=== PATIENT | male | born 1945 | race Caucasian/White ===

== ENCOUNTER 2018-09-29 09:11 | Inpatient (IN) | payer OTHER, BC ==
[2018-09-29 09:26] VITALS: BMI 27.1
[2018-09-29 10:15] LABS: BASO % 0.4 % (0-2.0); EOS % 1.1 % (0-4.5); HEMATOCRIT 38.7 % (35.4-49); HEMOGLOBIN 13.4 GM/dL (11.7-16.9); LYMPH % 13.9 % (8-40); MCH 31.2 pg (25.7-33.7); MCHC 34.6 g/dl (32.0-35.9); MEAN CELL VOLUME 90.3 fl (80-96); MEAN PLT VOLUME 9.1 fl (7.5-11.1); MONO % 5.1 % (3.8-10.2); NEUT % 79.5 % (42.8-82.8); PLATELET COUNT 153 K/MM3 (134-434); RBC 4.28 M/mm3 (4.00-5.60); RDW 13.7 % (11.9-15.9); WHITE BLOOD COUNT 8.1 K/mm3 (4.0-10.0)
[2018-09-29 10:45] LABS: ALBUMIN 3.7 g/dl (3.4-5.0); BILIRUBIN,TOTAL 0.4 mg/dL (0.2-1); CALCIUM 8.8 mg/dL (8.5-10.1); CREATININE 0.9 mg/dL (0.55-1.3); POTASSIUM 4.2 mmol/L (3.5-5.1); TOT PROT 6.7 g/dl (6.4-8.2)
--- NOTE | 2018-09-29 11:13 | PDOC ---
History of Present Illness - General Chief Complaint: Lightheaded Stated Complaint: DIZZINESS Time Seen by Provider: 09/29/18 09:54 - History of Present Illness Initial Comments: 09/29/18 11:06 73yo M hx HTN, HL, BPH presents to the ED with unsteadiness and fall yesterday. Pt reports he woke up yesterday, went to put his phone on the dresser when he states "I felt like my right leg wasn't there when I stepped on it." At that point, he fell, striking the L side of his chest and nose into the dresser, landing onto his knees. Denies head strike or LOC. His helped him up and he went back to bed. When he attempted to stand up again, he felt better, was able to walk around but intermittently felt unsteady on his feet because his "head was spinning" and he felt lightheaded. He went to see Dr. Oliver who examined him and pt reports he had a normal exam. His symptoms resolved and he was able to go shopping with his later in the day but this morning, he continued to feel unsteady when trying to get out of bed and required assistance from his to ambulate. These symptoms persisted prompting the ED visit. this morning, he also felt nauseous. Denies focal weakness/numbness at this time, headache, CP, SOB, N/V/D, abd pain, LE edema. No hx similar sxs. No recent travel. No palpitaions. Takes ASA 81mg daily. Past History - Past Medical History Allergies/Adverse Reactions: Allergies Allergy/AdvReac Type Severity Reaction Status Date / Time No Known Drug Allergies Allergy Verified 09/29/18 09:26 Home Medications: Ambulatory Orders Losartan/Hydrochlorothiazide [Hyzaar 50-12.5 Tablet] 1 each PO HS 11/19/14 Rosuvastatin Calcium [Crestor] 5 mg PO HS 11/19/14 Tamsulosin HCl [Flomax] 0.4 mg PO DAILY 09/29/18 Anemia: No Asthma: No Cancer: No Cardiac Disorders: No CVA: No COPD: No CHF: No Dementia: No Diabetes: No GI Disorders: No Disorders: No HTN: Yes Hypercholesterolemia: Yes Liver Disease: No Seizures: No Thyroid Disease: No - Surgical History Abdominal Surgery: No Appendectomy: No Cardiac Surgery: (angiogram - negative) Cholecystectomy: No Lung Surgery: No Neurologic Surgery: No Orthopedic Surgery: No - Suicide/Smoking/Psychosocial Hx Smoking History: Never smoked Have you smoked in the past 12 months: No Information on smoking cessation initiated: No Hx Alcohol Use: No Drug/Substance Use Hx: No Substance Use Type: Alcohol Hx Substance Use Treatment: No Review of Systems - Review of Systems Comments:: 09/29/18 11:11 GENERAL/CONSTITUTIONAL: No fever or chills. +unsteadiness HEAD, EYES, EARS, NOSE AND THROAT: No change in vision. No ear pain or discharge. No sore throat. GASTROINTESTINAL: No nausea, vomiting, diarrhea or constipation. GENITOURINARY: No dysuria, frequency, or change in urination. CARDIOVASCULAR: No chest pain or shortness of breath. RESPIRATORY: No cough, wheezing, or hemoptysis. MUSCULOSKELETAL: No joint or muscle swelling or pain. No neck or back pain. SKIN: No rash NEUROLOGIC: No headache, vertigo, loss of consciousness, +RLE numbness ENDOCRINE: No increased thirst. No abnormal weight change. HEMATOLOGIC/LYMPHATIC: No anemia, easy bleeding, or history of blood clots. ALLERGIC/IMMUNOLOGIC: No hives or skin allergy. *Physical Exam - Vital Signs Last Vital Signs Temp Pulse Resp BP Pulse Ox 97.3 F L 57 L 16 137/83 100 09/29/18 09:11 09/29/18 09:11 09/29/18 09:11 09/29/18 09:11 09/29/18 09:11 - Physical Exam Comments: 09/29/18 11:13 GENERAL: Awake, alert, and fully oriented, in no acute distress HEAD: +2x2mm ecchymmosis to L lateral superior nose, no bony ttp or deformities EYES: PERRLA, EOMI, sclera anicteric, conjunctiva clear ENT: Hearing grossly normal, nares patent, oropharynx clear without exudates. Dry MM NECK: Normal ROM, supple, no lymphadenopathy, JVD, or masses LUNGS: Breath sounds equal, clear to auscultation bilaterally. No wheezes, and no crackles HEART: Bradycardic to 50s but regular, normal S1 and S2, no murmurs, rubs or gallops ABDOMEN: Soft, nontender, normoactive bowel sounds. No guarding, no rebound. No masses EXTREMITIES: Normal range of motion, no edema. No cords, erythema, or tenderness NEUROLOGICAL: Normal speech, cranial nerves intact, negative pronator drift, 4+ /5 strength to RLE, 5/5 strength in remaining extremities, normal sensation to light touch in all 4 extremities, normal cerebellar exam, normal gait SKIN: Warm, Dry, normal turgor, no rashes or lesions noted. Heart Score/ECG Review #1 09/29/18 11:16 Twelve-lead EKG was performed and reviewed by me. Sinus bradycardia, rate 54. Normal axis and intervals. No ST elevations ED Treatment Course - LABORATORY CBC & Chemistry Diagram: 09/29/18 09:38 09/29/18 09:58 - ADDITIONAL ORDERS Additional order review: Laboratory Results 09/29/18 09/29/18 09:58 09:38 Sodium 141 Potassium 4.2 Chloride 108 H Carbon Dioxide 27 Anion Gap 6 L BUN 15 Creatinine 0.9 Est GFR (CKD-EPI)AfAm 98.55 Est GFR (CKD-EPI)NonAf 85.03 Random Glucose 114 H Calcium 8.8 Total Bilirubin 0.4 AST 26 ALT 43 Alkaline Phosphatase 61 Creatine Kinase 297 Creatine Kinase Index 1.0 CK-MB (CK-2) 3.1 Troponin I < 0.02 Total Protein 6.7 Albumin 3.7 09/29/18 09:38 RBC 4.28 MCV 90.3 MCHC 34.6 RDW 13.7 MPV 9.1 Neutrophils % 79.5 Lymphocytes % 13.9 Monocytes % 5.1 Eosinophils % 1.1 Basophils % 0.4 - RADIOLOGY Radiology Studies Ordered: Category Date Time Status HEAD CT WITHOUT CONTRAST [CT] Stat CT Scan 09/29/18 11:03 Ordered CHEST X-RAY PORTABLE* [RAD] Stat Radiology 09/29/18 11:05 Ordered Medical Decision Making - Medical Decision Making 09/29/18 11:17 73yo M hx HTN, HL, BPH presents to the ED with unsteadiness, resolved sensation the RLE "was not there" Vitals wnl Exam with subtle weakness to RLE Concern for TIA vs CVA vs metabolic disarray vs vertigo Plan for labs, CTH, anticipate admission 09/29/18 13:10 CTH wth no acute changes MRI/MRA ordered Dr. Lin consulted Case discussed with Dr. Lentz, pt accepted for admission to stroke bed Case discussed in detail with admitting physician including history, physical exam and ancillary studies. Admitting physician has assumed care for the patient, will follow all pending diagnostics and will complete the evaluation and treatment. *DC/Admit/Observation/Transfer Diagnosis at time of Disposition: Right leg weakness, Unsteady gait, Fall - Discharge Dispostion Condition at time of disposition: Stable Decision to Admit order: Yes - Referrals Referrals: Bob Oliver MD [Primary Care Provider] - - Patient Instructions - Post Discharge Activity - Attestations Physician Attestion: 09/29/18 13:39 I, Dr. Petrona Sanders MD, attest that this document has been prepared under my direction and personally reviewed by me in its entirety. I further attest, that it accurately reflects all work, treatment, procedures and medical decision -making performed by me.
[2018-09-29 12:34] LABS: PH,URINE 6.5 (5.0-8.0); URINE APPEARANCE CLEAR; URINE BILIRUBIN NEGATIVE (NEGATIVE); URINE COLOR YELLOW; URINE GLUCOSE (UA) NEGATIVE (NEGATIVE); URINE KETONE NEGATIVE (NEGATIVE); URINE LEUK ESTERASE NEGATIVE (NEGATIVE); URINE NITRITE NEGATIVE (NEGATIVE); URINE PROTEIN NEGATIVE (NEGATIVE); URINE UROBILINOGEN 0.2 mg/dL (0.2-1.0)
--- NOTE | 2018-09-29 12:51 | EKG ---
Test Reason : Blood Pressure : / mmHG Vent. Rate : 054 BPM Atrial Rate : 054 BPM P-R Int : 178 ms QRS Dur : 094 ms QT Int : 440 ms P-R-T Axes : 024 027 072 degrees QTc Int : 417 ms SINUS BRADYCARDIA OTHERWISE NORMAL ECG NO PREVIOUS ECGS AVAILABLE Confirmed by CELIA YBARRA MD ([id number]) on 09/29/2018 12:51:26 PM Referred By: Confirmed By:CELIA YBARRA MD
--- NOTE | 2018-09-29 14:03 | HP ---
CHIEF COMPLAINT: dizziness PCP: Dr. Oliver HISTORY OF PRESENT ILLNESS: Patient is a 73 yo M with a PMHx of HTN, HLD, BPH, presented to the ED because of dizziness and unsteadiness that started yesterday. Patient said he woke up from bed yesterday and fell after his R leg "gave out on me", which caused him to fall and hit his nose and L chest. Patient said his Leg function came back to normal after a few seconds. He went to his PCP who did a full neurological examination with no abnormal findings. Later that day he went to the mall with his and felt good the rest of the day. Patient then woke up this morning with unsteady gait, dizziness, and felt as if he was spinning in the room. He then developed nausea and a few episodes of NBNB vomiting. He also says he developed blurry vision. Patient said this never happened to him before but does admit to chronic hearing loss (requiring hearing Aides), and dizziness when bending or getting up too quickly. Patient was also started on Flomax 2 months ago after being diagnosed with BPH. Patient denies numbness, tingling, LOC, head trauma, chest pain, sob, fevers, chills, headaches, weakness. ER course was notable for: (1) Head CT: no acute infarcts. moderate volume loss and dilatation of the ventricles. (2) Bradycardic in the 50's. Recent Travel: denies PAST MEDICAL HISTORY: per HPI PAST SURGICAL HISTORY: meniscus sx in the past Social History: Smoking: denies Alcohol: denies Drugs: denies Family History: mother and father with chf Allergies No Known Drug Allergies Allergy (Verified 09/29/18 09:26) HOME MEDICATIONS: Home Medications Medication Instructions Recorded Losartan/Hydrochlorothiazide 1 each PO HS 11/19/14 [Hyzaar 50-12.5 Tablet] Rosuvastatin Calcium [Crestor] 5 mg PO HS 11/19/14 Tamsulosin HCl [Flomax] 0.4 mg PO DAILY 09/29/18 REVIEW OF SYSTEMS CONSTITUTIONAL: Absent: fever, chills, diaphoresis, generalized weakness, malaise, loss of appetite, weight change HEENT: Absent: rhinorrhea, nasal congestion, throat pain, throat swelling, difficulty swallowing, mouth swelling, ear pain, eye pain, visual changes CARDIOVASCULAR: lightheadedness Absent: chest pain, syncope, palpitations, irregular heart rate, peripheral edema RESPIRATORY: Absent: cough, shortness of breath, dyspnea with exertion, orthopnea, wheezing, stridor, hemoptysis GASTROINTESTINAL: Absent: abdominal pain, abdominal distension, nausea, vomiting, diarrhea, constipation, melena, hematochezia GENITOURINARY: Absent: dysuria, frequency, urgency, hesitancy, hematuria, flank pain, genital pain MUSCULOSKELETAL: Absent: myalgia, arthralgia, joint swelling, back pain, neck pain SKIN: Absent: rash, itching, pallor HEMATOLOGIC/IMMUNOLOGIC: Absent: easy bleeding, easy bruising, lymphadenopathy, frequent infections ENDOCRINE: Absent: unexplained weight gain, unexplained weight loss, heat intolerance, cold intolerance NEUROLOGIC: Absent: headache, focal weakness or paresthesias, dizziness, unsteady gait, seizure, mental status changes, bladder or bowel incontinence PSYCHIATRIC: Absent: anxiety, depression, suicidal or homicidal ideation, hallucinations. PHYSICAL EXAMINATION Vital Signs - 24 hr 09/29/18 09/29/18 09/29/18 09:11 13:00 13:22 Temperature 97.3 F L Pulse Rate 57 L Pulse Rate [ 69 Apical] Respiratory 16 20 Rate Blood Pressure 137/83 Blood Pressure 125/86 [Right Arm] O2 Sat by Pulse 100 96 96 Oximetry (%) GENERAL: Awake, alert, and fully oriented, in no acute distress. HEAD: Normal with no signs of trauma. EYES: Pupils equal, round and reactive to light, extraocular movements intact, sclera anicteric, conjunctiva clear. no nystagmus EARS, NOSE, THROAT: B/L Ears normal, mild cerumen. no ear abnormalities. oropharynx clear without exudates. dry mucous membranes. NECK: Normal range of motion, supple LUNGS: Breath sounds equal, clear to auscultation bilaterally. No wheezes, and no crackles. HEART: Regular rate and rhythm, normal S1 and S2 without murmur, rub or gallop. ABDOMEN: Soft, nontender, not distended, normoactive bowel sounds, no guarding, no rebound, no masses. No hepatomegaly or splenomegaly. MUSCULOSKELETAL: Normal range of motion at all joints. No bony deformities or tenderness. No CVA tenderness. UPPER EXTREMITIES: 2+ pulses, warm, well-perfused. No cyanosis. No clubbing. No peripheral edema. LOWER EXTREMITIES: 2+ pulses, warm, well-perfused. No calf tenderness. No peripheral edema. NEUROLOGICAL: No facial droop. symmetric face, strength 5/5 throughout. reflexes intact thoughout. Cranial nerves II-XII intact. Normal speech. UNSTEADY GAIT. abnormal L hand finger to nose. sensations intact throughout. Laboratory Results - last 24 hr 09/29/18 09/29/18 09/29/18 09:38 09:38 09:58 WBC 8.1 RBC 4.28 Hgb 13.4 Hct 38.7 MCV 90.3 MCH 31.2 MCHC 34.6 RDW 13.7 Plt Count 153 MPV 9.1 Absolute Neuts (auto) 6.4 Neutrophils % 79.5 Lymphocytes % 13.9 Monocytes % 5.1 Eosinophils % 1.1 Basophils % 0.4 Nucleated RBC % 0 Sodium 141 Potassium 4.2 Chloride 108 H Carbon Dioxide 27 Anion Gap 6 L BUN 15 Creatinine 0.9 Est GFR (CKD-EPI)AfAm 98.55 Est GFR (CKD-EPI)NonAf 85.03 Random Glucose 114 H Calcium 8.8 Total Bilirubin 0.4 AST 26 ALT 43 Alkaline Phosphatase 61 Creatine Kinase 297 Creatine Kinase Index 1.0 CK-MB (CK-2) 3.1 Troponin I < 0.02 Total Protein 6.7 Albumin 3.7 Urine Color Urine Appearance Urine pH Ur Specific [place] Urine Protein Urine Glucose (UA) Urine Ketones Urine Blood Urine Nitrite Urine Bilirubin Urine Urobilinogen Ur Leukocyte Esterase 09/29/18 12:21 WBC RBC Hgb Hct MCV MCH MCHC RDW Plt Count MPV Absolute Neuts (auto) Neutrophils % Lymphocytes % Monocytes % Eosinophils % Basophils % Nucleated RBC % Sodium Potassium Chloride Carbon Dioxide Anion Gap BUN Creatinine Est GFR (CKD-EPI)AfAm Est GFR (CKD-EPI)NonAf Random Glucose Calcium Total Bilirubin AST ALT Alkaline Phosphatase Creatine Kinase Creatine Kinase Index CK-MB (CK-2) Troponin I Total Protein Albumin Urine Color Yellow Urine Appearance Clear Urine pH 6.5 Ur Specific [place] 1.027 Urine Protein Negative Urine Glucose (UA) Negative Urine Ketones Negative Urine Blood Negative Urine Nitrite Negative Urine Bilirubin Negative Urine Urobilinogen 0.2 Ur Leukocyte Esterase Negative ASSESSMENT/PLAN: 73 yo M with a PMHx of HTN, HLD, BPH, presented to the ED because of dizziness and unsteadiness. #Gait instability/Dizziness/Nausea/Vomiting -r/o TIA/CVA vs BPPV or inner ears dz vs Orthostatic (recent flomax use) -EKG with Sinus bryan 54 -tele monitoring -echo -carotids -Neuro consult -Head CT: no acute infarcts. moderate volume loss and dilatation of the ventricles. -FU BRAIN MRI -consider ENT consult or outpatient follow up for vertigo -orthostatic VS -IV fluids. 1 L Bolus then 75ml/hour -consider starting meclizine -hold Flomax -ASA 81mg daily -Start Atorvastatin 40mg daily. D/C home med Crestor 5mg #HTN/HLD -hold HCTZ/Darrion combo #FEN -IV fluids NS@ 75 -monitor -sodium diet #Dvt -eab Visit type - Emergency Visit Emergency Visit: Yes ED Registration Date: 09/29/18 Care time: The patient presented to the Emergency Department on the above date and was hospitalized for further evaluation of their emergent condition. - New Patient This patient is new to me today: Yes Date on this admission: 09/30/18 - Critical Care Critical Care patient: No
[2018-09-29] MEDS ORDERED: ATORVASTATIN CA 40 MG TABLET (FP) PO ONE (14:23)
[2018-09-29] MEDS ORDERED: SODIUM CHLORIDE 1,000 ML IV STA (14:24)
[2018-09-29] MEDS ORDERED: ASPIRIN 81 MG CHEWABLE TABLETS ONE (15:26)
--- NOTE | 2018-09-29 15:26 | PN ---
Teaching Attending Note Name of Resident: Benja Topete ATTENDING PHYSICIAN STATEMENT I saw and evaluated the patient. I reviewed the resident's note and discussed the case with the resident. I agree with the resident's findings and plan as documented with exceptions below. SUBJECTIVE: 73 yom with PMHx of HTN, HLD, BPH, started on flomax 2 months ago, was in his [place] yesterday, when noted his right leg giving out, and his left side of his nose and chest to the dresser. Was feeling fine then, was seen by PCP with reported normal exam and sent home. This AM, patient woke up with dizziness intially reported spinning sensation, now light headedness, more with positional changes, associated with nausea, retching, minimal to none oral intake and gait instability. Also reports blurry vision which is improved now. Given ongoing symptoms came to the ED. Currently no dizziness rest but present with positional changes and when tries to sit or stand up. Blurry vision improved. ongoing nausea and gait instability , 12 point ROS done, neg for chest pain, palpitations, dyspnea, ear pain, recent URI like illness, speech disturbances, or any new concerns. left chest wall soreness, improved today. No pain over nose. OBJECTIVE: Vital Signs Period Temp Pulse Resp BP Sys/Wilson Pulse Ox Last 24 Hr 97.3 F 57-69 16-20 125-137/83-86 96-100 Intake & Output 09/26/18 09/27/18 09/28/18 09/29/18 23:59 23:59 23:59 23:59 Weight 200 lb GENERAL: Awake, alert, and fully oriented, in no acute distress. HEAD: Normal with no signs of trauma. EYES: Pupils equal, round and reactive to light, extraocular movements intact, sclera anicteric, conjunctiva clear. No lid lag. EARS, NOSE, THROAT: erythema over nose (Chronic per patient and family), no tenderness over sinus/nasal region Otoscopic exam: minimal cerumen, visualized tympanic membranes with no perforation/erythema or discharge NECK: Normal range of motion, supple without lymphadenopathy, JVD, or masses. LUNGS: Breath sounds equal, clear to auscultation bilaterally. No wheezes, and no crackles. No accessory muscle use. HEART: Regular rate and rhythm, normal S1 and S2 ABDOMEN: Soft, nontender, not distended, normoactive bowel sounds, no guarding, no rebound, no masses. MUSCULOSKELETAL: Normal range of motion at all joints. No bony deformities or tenderness. No CVA tenderness. small ecchymotic area of left upper chest wall, no point tenderness or crepitus noted UPPER EXTREMITIES: 2+ pulses, warm, well-perfused. No cyanosis. No clubbing. No peripheral edema. LOWER EXTREMITIES: 2+ pulses, warm, well-perfused. No calf tenderness. No peripheral edema. NEUROLOGICAL: AAOx3, power 5/5, DTR bilaterally symmetric, EOMI, PERRL, no nystagmus, facial symmetry, speech normal, gait, broad based when upright, unsteady, further exam deferred, blurriness improved, no gross deficit or diplopia noted, cranial nerves II-XII intact, toes downgoing, finger nose test with intermittent past pointing, no dysdiadokinesia PSYCHIATRIC: Cooperative. Good eye contact. Appropriate mood and affect. SKIN: Warm, dry, normal turgor, no rashes or lesions noted, normal capillary refill. Home Medications Medication Instructions Recorded Losartan/Hydrochlorothiazide 1 each PO HS 11/19/14 [Hyzaar 50-12.5 Tablet] Rosuvastatin Calcium [Crestor] 5 mg PO HS 11/19/14 Tamsulosin HCl [Flomax] 0.4 mg PO DAILY 09/29/18 Active Medications Aspirin (Asa -) 81 mg PO DAILY [facility] Last Admin: 09/29/18 15:30 Dose: 81 mg Atorvastatin Calcium (Lipitor -) 40 mg PO [facility] Last Admin: 09/29/18 15:51 Dose: 40 mg Sodium Chloride (Normal Saline -) 1,000 mls @ 75 mls/hr IV ASDIR [facility] Laboratory Results - last 24 hr 09/29/18 09/29/18 09/29/18 09:38 09:38 09:58 WBC 8.1 RBC 4.28 Hgb 13.4 Hct 38.7 MCV 90.3 MCH 31.2 MCHC 34.6 RDW 13.7 Plt Count 153 MPV 9.1 Absolute Neuts (auto) 6.4 Neutrophils % 79.5 Lymphocytes % 13.9 Monocytes % 5.1 Eosinophils % 1.1 Basophils % 0.4 Nucleated RBC % 0 Sodium 141 Potassium 4.2 Chloride 108 H Carbon Dioxide 27 Anion Gap 6 L BUN 15 Creatinine 0.9 Est GFR (CKD-EPI)AfAm 98.55 Est GFR (CKD-EPI)NonAf 85.03 Random Glucose 114 H Calcium 8.8 Total Bilirubin 0.4 AST 26 ALT 43 Alkaline Phosphatase 61 Creatine Kinase 297 Creatine Kinase Index 1.0 CK-MB (CK-2) 3.1 Troponin I < 0.02 Total Protein 6.7 Albumin 3.7 Urine Color Urine Appearance Urine pH Ur Specific [place] Urine Protein Urine Glucose (UA) Urine Ketones Urine Blood Urine Nitrite Urine Bilirubin Urine Urobilinogen Ur Leukocyte Esterase 09/29/18 12:21 WBC RBC Hgb Hct MCV MCH MCHC RDW Plt Count MPV Absolute Neuts (auto) Neutrophils % Lymphocytes % Monocytes % Eosinophils % Basophils % Nucleated RBC % Sodium Potassium Chloride Carbon Dioxide Anion Gap BUN Creatinine Est GFR (CKD-EPI)AfAm Est GFR (CKD-EPI)NonAf Random Glucose Calcium Total Bilirubin AST ALT Alkaline Phosphatase Creatine Kinase Creatine Kinase Index CK-MB (CK-2) Troponin I Total Protein Albumin Urine Color Yellow Urine Appearance Clear Urine pH 6.5 Ur Specific [place] 1.027 Urine Protein Negative Urine Glucose (UA) Negative Urine Ketones Negative Urine Blood Negative Urine Nitrite Negative Urine Bilirubin Negative Urine Urobilinogen 0.[address] brain results reviewed EKG sinus bradycardia 50s, no acute ST-T changes ASSESSMENT AND PLAN: 73 yom with PMHx of HTN, HLD, BPH admitted with Gait instability/dizziness/ nausea/vomiting -Dizziness/gait instability/nausea/vomiting, r/o cerebella CVA vs TIA -Acute on chronic positional dizziness, ?from above vs recent flomax -HTN -HLD -BPH Plan: MRI/MRA brain/neck. Neuro checks. Stroke telemetry. Neurology consult Dr. Lin ASA/statin. Check lipid panel 2D echo, carotid duplex. Hold ARB/HCTZ and flomax for now. Supportive treatment with zofran, gentle hydration. PT eval [id number] SCDs Dispo admit to stroke telemetry. Plan discussed with patient and family at bedside in detail, all questions answered. Total admit time 65 min.
[2018-09-29] MEDS: ASPIRIN 81 MG CHEWABLE TABLETS PO SCH (15:30)
[2018-09-29] MEDS ORDERED: SODIUM CHLORIDE 1,000 ML IV SCH (15:45)
[2018-09-29] MEDS ORDERED: HEPARIN NA (PORCINE) 5,000 UNITS/ML 1ML VIAL SQ SCH (18:00)
[2018-09-29] MEDS ORDERED: ROSUVASTATIN CA 10 MG TABLET (FP) PO SCH (22:00)
[2018-09-30 06:09] LABS: BASO % 0.5 % (0-2.0); EOS % 2.5 % (0-4.5); HEMATOCRIT 36.5 % (35.4-49); HEMOGLOBIN 12.8 GM/dL (11.7-16.9); LYMPH % 26.8 % (8-40); MCH 31.3 pg (25.7-33.7); MCHC 35.1 g/dl (32.0-35.9); MEAN CELL VOLUME 89.2 fl (80-96); MEAN PLT VOLUME 8.7 fl (7.5-11.1); MONO % 7.5 % (3.8-10.2); NEUT % 62.7 % (42.8-82.8); PLATELET COUNT 161 K/MM3 (134-434); RBC 4.09 M/mm3 (4.00-5.60); RDW 13.7 % (11.9-15.9); WHITE BLOOD COUNT 6.8 K/mm3 (4.0-10.0)
[2018-09-30 06:45] LABS: ALBUMIN 3.4 g/dl (3.4-5.0); BILIRUBIN,TOTAL 0.4 mg/dL (0.2-1); CALCIUM 8.1 mg/dL (8.5-10.1); CREATININE 0.9 mg/dL (0.55-1.3); MAGNESIUM 2.3 mg/dL (1.8-2.4); PHOSPHOROUS 3.4 mg/dL (2.5-4.9); POTASSIUM 3.9 mmol/L (3.5-5.1); TOT PROT 6.1 g/dl (6.4-8.2)
[2018-09-30] MEDS ORDERED: ASPIRIN 81 MG CHEWABLE TABLETS ONE (09:28)
[2018-09-30] MEDS: ASPIRIN 81 MG CHEWABLE TABLETS PO SCH (09:40)
--- NOTE | 2018-09-30 09:51 | CONSULT ---
Consult - text type - Consultation Consultation Note: Neurology CHIEF COMPLAINT: Dizziness PCP: Dr. Oliver HISTORY OF PRESENT ILLNESS: 73 yo M with a PMHx of HTN, HLD, BPH, presented to the ED because of dizziness and unsteadiness that started the day prior to admission. Patient said he woke up from bed and fell after his R leg "gave out on me", which caused him to fall and hit his nose and L chest. Patient said his Leg function came back to normal after a few seconds. He went to his PCP who did a full neurological examination with no abnormal findings. Later that day he went to the mall with his and felt good the rest of the day. Patient then woke up this morning with unsteady gait, dizziness, and felt as if he was spinning in the room. He then developed nausea and a few episodes of NBNB vomiting. He also says he developed blurry vision. Patient said this never happened to him before but does admit to chronic hearing loss (requiring hearing Aides), and dizziness when bending or getting up too quickly. Patient was also started on Flomax 2 months ago after being diagnosed with BPH. Patient denies numbness, tingling, LOC, head trauma, chest pain, sob, fevers, chills, headaches, weakness. in the ER, he was evaluated and found to be bradycardic to the 50s. He also completed noncontrast head CT which I reviewed and did not demonstrate any significant structural abnormalities. He was admitted for further evaluation and management overnight. MRI brain was completed and did not show evidence of acute or subacute infarct. MRA of the head and neck was also completed and did not show evidence of malformations or aneurysms. He also completed carotid Dopplers which I reviewed and discussed in detail and did not demonstrate hemodynamically significant stenosis. He reports being at baseline without any neurologic complaints. He was in the process of having an echo completed at bedside during my evaluation and seems to be at baseline. Recent Travel: denies PAST MEDICAL HISTORY: per HPI PAST SURGICAL HISTORY: meniscus sx in the past Social History: Smoking: denies Alcohol: denies Drugs: denies Family History: mother and father with chf Allergies No Known Drug Allergies Allergy (Verified 09/29/18 09:26) HOME MEDICATIONS: Home Medications Medication Instructions Recorded Losartan/Hydrochlorothiazide 1 each PO HS 11/19/14 [Hyzaar 50-12.5 Tablet] Rosuvastatin Calcium [Crestor] 5 mg PO HS 11/19/14 Tamsulosin HCl [Flomax] 0.4 mg PO DAILY 09/29/18 REVIEW OF SYSTEMS CONSTITUTIONAL: Absent: fever, chills, diaphoresis, generalized weakness, malaise, loss of appetite, weight change HEENT: Absent: rhinorrhea, nasal congestion, throat pain, throat swelling, difficulty swallowing, mouth swelling, ear pain, eye pain, visual changes CARDIOVASCULAR: lightheadedness Absent: chest pain, syncope, palpitations, irregular heart rate, peripheral edema RESPIRATORY: Absent: cough, shortness of breath, dyspnea with exertion, orthopnea, wheezing, stridor, hemoptysis GASTROINTESTINAL: Absent: abdominal pain, abdominal distension, nausea, vomiting, diarrhea, constipation, melena, hematochezia GENITOURINARY: Absent: dysuria, frequency, urgency, hesitancy, hematuria, flank pain, genital pain MUSCULOSKELETAL: Absent: myalgia, arthralgia, joint swelling, back pain, neck pain SKIN: Absent: rash, itching, pallor HEMATOLOGIC/IMMUNOLOGIC: Absent: easy bleeding, easy bruising, lymphadenopathy, frequent infections ENDOCRINE: Absent: unexplained weight gain, unexplained weight loss, heat intolerance, cold intolerance NEUROLOGIC: Absent: headache, focal weakness or paresthesias, dizziness, unsteady gait, seizure, mental status changes, bladder or bowel incontinence PSYCHIATRIC: Absent: anxiety, depression, suicidal or homicidal ideation, hallucinations. PHYSICAL EXAMINATION Vital Signs - 24 hr 09/29/18 09/29/18 09/29/18 09:11 13:00 13:22 Temperature 97.3 F L Pulse Rate 57 L Pulse Rate [ 69 Apical] Respiratory 16 20 Rate Blood Pressure 137/83 Blood Pressure 125/86 [Right Arm] O2 Sat by Pulse 100 96 96 Oximetry (%) GENERAL: Awake, alert, and fully oriented, in no acute distress. HEAD: Normal with no signs of trauma. EYES: Pupils equal, round and reactive to light, extraocular movements intact, sclera anicteric, conjunctiva clear. no nystagmus EARS, NOSE, THROAT: B/L Ears normal, mild cerumen. no ear abnormalities. oropharynx clear without exudates. dry mucous membranes. NECK: Normal range of motion, supple LUNGS: Breath sounds equal, clear to auscultation bilaterally. No wheezes, and no crackles. HEART: Regular rate and rhythm, normal S1 and S2 without murmur, rub or gallop. ABDOMEN: Soft, nontender, not distended, normoactive bowel sounds, no guarding, no rebound, no masses. No hepatomegaly or splenomegaly. MUSCULOSKELETAL: Normal range of motion at all joints. No bony deformities or tenderness. No CVA tenderness. UPPER EXTREMITIES: 2+ pulses, warm, well-perfused. No cyanosis. No clubbing. No peripheral edema. LOWER EXTREMITIES: 2+ pulses, warm, well-perfused. No calf tenderness. No peripheral edema. NEUROLOGICAL: No facial droop. symmetric face, strength 5/5 throughout. reflexes intact thoughout. Cranial nerves II-XII intact. Normal speech. slight hesitation in gait. sensory intact Laboratory Results - last 24 hr 09/29/18 09/29/18 09/29/18 09:38 09:38 09:58 WBC 8.1 RBC 4.28 Hgb 13.4 Hct 38.7 MCV 90.3 MCH 31.2 MCHC 34.6 RDW 13.7 Plt Count 153 MPV 9.1 Absolute Neuts (auto) 6.4 Neutrophils % 79.5 Lymphocytes % 13.9 Monocytes % 5.1 Eosinophils % 1.1 Basophils % 0.4 Nucleated RBC % 0 Sodium 141 Potassium 4.2 Chloride 108 H Carbon Dioxide 27 Anion Gap 6 L BUN 15 Creatinine 0.9 Est GFR (CKD-EPI)AfAm 98.55 Est GFR (CKD-EPI)NonAf 85.03 Random Glucose 114 H Calcium 8.8 Total Bilirubin 0.4 AST 26 ALT 43 Alkaline Phosphatase 61 Creatine Kinase 297 Creatine Kinase Index 1.0 CK-MB (CK-2) 3.1 Troponin I < 0.02 Total Protein 6.7 Albumin 3.7 Urine Color Urine Appearance Urine pH Ur Specific [place] Urine Protein Urine Glucose (UA) Urine Ketones Urine Blood Urine Nitrite Urine Bilirubin Urine Urobilinogen Ur Leukocyte Esterase 09/29/18 12:21 WBC RBC Hgb Hct MCV MCH MCHC RDW Plt Count MPV Absolute Neuts (auto) Neutrophils % Lymphocytes % Monocytes % Eosinophils % Basophils % Nucleated RBC % Sodium Potassium Chloride Carbon Dioxide Anion Gap BUN Creatinine Est GFR (CKD-EPI)AfAm Est GFR (CKD-EPI)NonAf Random Glucose Calcium Total Bilirubin AST ALT Alkaline Phosphatase Creatine Kinase Creatine Kinase Index CK-MB (CK-2) Troponin I Total Protein Albumin Urine Color Yellow Urine Appearance Clear Urine pH 6.5 Ur Specific [place] 1.027 Urine Protein Negative Urine Glucose (UA) Negative Urine Ketones Negative Urine Blood Negative Urine Nitrite Negative Urine Bilirubin Negative Urine Urobilinogen 0.2 Ur Leukocyte Esterase Negative ASSESSMENT/PLAN: 73 yo M with a PMHx of HTN, HLD, BPH, presented to the ED because of dizziness and unsteadiness that started the day prior to admission. Patient said he woke up from bed and fell after his R leg "gave out on me", which caused him to fall and hit his nose and L chest. Patient said his Leg function came back to normal after a few seconds. He went to his PCP who did a full neurological examination with no abnormal findings. Later that day he went to the mall with his and felt good the rest of the day. Patient then woke up this morning with unsteady gait, dizziness, and felt as if he was spinning in the room. He then developed nausea and a few episodes of NBNB vomiting. He also says he developed blurry vision. Patient said this never happened to him before but does admit to chronic hearing loss (requiring hearing Aides), and dizziness when bending or getting up too quickly. Patient was also started on Flomax 2 months ago after being diagnosed with BPH. Patient denies numbness, tingling, LOC, head trauma, chest pain, sob, fevers, chills, headaches, weakness. in the ER, he was evaluated and found to be bradycardic to the 50s. He also completed noncontrast head CT which I reviewed and did not demonstrate any significant structural abnormalities. He was admitted for further evaluation and management overnight. MRI brain was completed and did not show evidence of acute or subacute infarct. MRA of the head and neck was also completed and did not show evidence of malformations or aneurysms. He also completed carotid Dopplers which I reviewed and discussed in detail and did not demonstrate hemodynamically significant stenosis. He reports being at baseline without any neurologic complaints. He was in the process of having an echo completed at bedside during my evaluation and seems to be at baseline. Would recommend being on antiplatelet such as daily baby aspirin. Follow-up echo results, continue adequate hydration. Continue statin. monitor blood pressure, maintain normotensive range, continue continue HCTZ/Beny regiment. If medically stable, neurologically cleared for discharge.
[2018-09-30 10:21] VITALS: BP 142/86; PULSE 60; TEMP 98.5
--- NOTE | 2018-09-30 11:20 | ECHO ---
Name: RINA HOLLANDJR Exam:Adult Echocardiogram Study Date: 09/30/2018 09:28 AM Age: 73 yrs Reason For Study: TIA Height: 72 in Weight: 250 lb BSA: 2.3 m2 MMode/2D Measurements & Calculations IVSd: 0.81 cm Ao root diam: 3.7 cm LVIDd: 5.4 cm LA dimension: 3.2 cm LVIDs: 3.5 cm LVPWd: 0.79 cm EDV(Teich): 143.4 ml LVOT diam: 2.2 cm ESV(Teich): 50.3 ml Doppler Measurements & Calculations MV E max amando: 77.0 cm/sec Ao V2 max: 162.9 cm/sec MV A max amando: 98.2 cm/sec Ao max P.6 mmHg MV E/A: 0.78 Ao V2 mean: 112.6 cm/sec MV dec time: 0.28 sec Ao mean P.7 mmHg Ao V2 VTI: 33.3 cm LIA(I,D): 2.8 cm2 AI P1/2t: 756.9 msec LIA(V,D): 2.5 cm2 AI max amadno: 384.9 cm/sec LV V1 max P.4 mmHg AI max P.4 mmHg LV V1 mean P.7 mmHg AI dec slope: 148.9 cm/sec2 LV V1 max: 104.9 cm/sec LV V1 mean: 78.8 cm/sec LV V1 VTI: 23.6 cm MR max amando: 491.1 cm/sec SV(LVOT): 93.2 ml MR max P.6 mmHg TV V2 max: 208.2 cm/sec Med Peak E' Amando: 6.5 cm/sec TV max P.4 mmHg Med E/e': 11.9 Lat Peak E' Amando: 7.8 cm/sec Lat E/e': 9.9 Left Ventricle Left ventricular systolic function is normal. Ejection Fraction = 55-60%. Right Ventricle The right ventricle is normal in size and function. Atria Normal left and right atrial size and function. Mitral Valve The mitral valve is normal in structure and function. There is mild mitral annular calcification. The re is no mitral valve stenosis. There is mild mitral regurgitation. Tricuspid Valve The tricuspid valve is normal in structure and function. There is mild tricuspid regurgitation. Aortic Valve The aortic valve is trileaflet. No hemodynamically significant valvular aortic stenosis. Mild aortic regurgitation. Pulmonic Valve The pulmonic valve is not well seen, but is grossly normal. There is no pulmonic valvular stenosis. Great Vessels Borderline aortic root dilatation. Pericardium/Pleura There is no pericardial effusion. Interpretation Summary Left ventricular systolic function is normal. Ejection Fraction = 55-60%. The right ventricle is normal in size and function. There is mild mitral annular calcification. There is mild mitral regurgitation. There is mild tricuspid regurgitation. Mild aortic regurgitation. Borderline aortic root dilatation. There is no pericardial effusion. MD Martin *Jonathan 09/30/2018 11:20 AM
--- NOTE | 2018-09-30 11:57 | DS ---
Physical Exam: SUBJECTIVE: Patient seen and examined, symptoms resolved, ambulating well, no concerns. OBJECTIVE: Vital Signs Period Temp Pulse Resp BP Sys/Wilson Pulse Ox Last 24 Hr 98.0 F-98.5 F 56-74 18-22 125-146/71-96 95-99 Intake & Output 09/27/18 09/28/18 09/29/18 09/30/18 23:59 23:59 23:59 23:59 Weight 200 lb PHYSICAL EXAM GENERAL: The patient is awake, alert, and fully oriented, in no acute distress. HEAD: Normal with no signs of trauma. EYES: PERRL, extraocular movements intact, sclera anicteric, conjunctiva clear. ENT: Ears normal, nares patent, oropharynx clear without exudates, moist mucous membranes, nasal skin discoloration unchanged. NECK: Trachea midline, full range of motion, supple. LUNGS: Breath sounds equal, clear to auscultation bilaterally, no wheezes, no crackles, no accessory muscle use. HEART: Regular rate and rhythm, S1, S2 ABDOMEN: Soft, nontender, nondistended, normoactive bowel sounds, no guarding, no rebound EXTREMITIES: 2+ pulses, warm, well-perfused, no edema. NEUROLOGICAL: AAOx3, facial symmetry, tongue midline, power 5/5, sensation intact and symmetric to light touch, no pronator drift, gait normal today, toes downgoing, DTR bilaterally symmetric, Cranial nerves II through XII grossly intact. Normal speech PSYCH: Normal mood, normal affect. SKIN: Warm, dry, normal turgor, no rashes or lesions noted. LABS Laboratory Results - last 24 hr 09/29/18 09/29/18 09/30/18 12:21 15:33 05:55 WBC 6.8 RBC 4.09 Hgb 12.8 Hct 36.5 MCV 89.2 MCH 31.3 MCHC 35.1 RDW 13.7 Plt Count 161 MPV 8.7 Absolute Neuts (auto) 4.3 Neutrophils % 62.7 D Lymphocytes % 26.8 D Monocytes % 7.5 Eosinophils % 2.5 D Basophils % 0.5 Nucleated RBC % 0 Sodium Potassium Chloride Carbon Dioxide Anion Gap BUN Creatinine Est GFR (CKD-EPI)AfAm Est GFR (CKD-EPI)NonAf Random Glucose Calcium Phosphorus Magnesium Total Bilirubin AST ALT Alkaline Phosphatase Troponin I < 0.02 Total Protein Albumin Triglycerides Cholesterol Total LDL Cholesterol HDL Cholesterol TSH Urine Color Yellow Urine Appearance Clear Urine pH 6.5 Ur Specific [place] 1.027 Urine Protein Negative Urine Glucose (UA) Negative Urine Ketones Negative Urine Blood Negative Urine Nitrite Negative Urine Bilirubin Negative Urine Urobilinogen 0.2 Ur Leukocyte Esterase Negative 09/30/18 05:55 WBC RBC Hgb Hct MCV MCH MCHC RDW Plt Count MPV Absolute Neuts (auto) Neutrophils % Lymphocytes % Monocytes % Eosinophils % Basophils % Nucleated RBC % Sodium 144 Potassium 3.9 Chloride 112 H Carbon Dioxide 27 Anion Gap 5 L BUN 14 Creatinine 0.9 Est GFR (CKD-EPI)AfAm 98.55 Est GFR (CKD-EPI)NonAf 85.03 Random Glucose 103 Calcium 8.1 L Phosphorus 3.4 Magnesium 2.3 Total Bilirubin 0.4 AST 22 ALT 38 Alkaline Phosphatase 58 Troponin I Total Protein 6.1 L Albumin 3.4 Triglycerides 141 Cholesterol 148 Total LDL Cholesterol 79 HDL Cholesterol 49 TSH 2.04 Urine Color Urine Appearance Urine pH Ur Specific [place] Urine Protein Urine Glucose (UA) Urine Ketones Urine Blood Urine Nitrite Urine Bilirubin Urine Urobilinogen Ur Leukocyte Esterase MRI brain: Findings. The intracranial contents are shown well from the dewitt magnum to the cranial vertex. The brain parenchyma displays normal signal intensity characteristics and architectural features throughout the entire cranial vault. There is no evidence of abnormal restricted diffusion in the brain to suggest acute or subacute infarction. There is no evidence edema, hemorrhage, mass effect, midline shift, intra or extra axial collections. No evidence of T2- hyperintense periventricular white matter or corpus callosal lesions, or hemorrhage. Mild age related increased signal intensity of the periventricular white matter attributed to breakdown of ependymal lining, increase of extracellular fluid and mild subependymal gliosis. Normal corpus callosum is noted. Mild age-related involutional changes, CSF spaces are age-appropriate. The major caliber vascular structures including the iliamna of [place] and peripheral dural venous sinuses show normal signal characteristics. No evidence of tonsillar ectopia No abnormalities are seen in the sellar region. Normal optic chiasm, pituitary infundibulum. No abnormalities are seen in region of CP angle cisterns. Paranasal sinuses, right mastoid air cells are not opacified. T2 increased signal intensity multiple left-sided mastoid air cells (effusion). Normal signal intensity of the calvarium. Impression. There is no evidence of abnormal restricted diffusion in the brain to suggest acute or subacute infarction. Normal signal intensity of the brain parenchyma with mild age-related involutional changes. MRA head/neck: There is normal symmetrical flow-related enhancement of ICAs, MCAs and ACAs. Normal flow-related enhancement of the distal vertebral arteries forming basilar artery and both certified neurodiagnostic technologist. Dominant right vertebral artery. There is no evidence of aneurysm, vascular malformation, or flow limiting stenosis. Posterior communicating arteries were not seen on the reconstruction images. No definite flow is seen on the source images. . Impression. There is no evidence of aneurysm, vascular malformation or flow limiting stenosis. Carotid duplex: There is no sonographic evidence of a hemodynamically significant extracranial carotid artery stenosis (reported ultrasound sensitivity 90%). Mild atherosclerotic plaque formation is seen at the level of the carotid artery bifurcations. The vertebral arteries appear to be patent demonstrating antegrade flow. Impression: No Doppler evidence of a high-grade carotid artery stenosis is seen. 2D echo: LV systolic function normal, EF 55-60%, mild mitral regurgitation, mild mitral annular calcification, mild aortic regurgitation, borderline aortic root dilatation HOSPITAL COURSE: Date of Admission:09/29/18 Date of Discharge: 09/30/18 Minutes to complete discharge: 40 Discharge Summary Reason For Visit: WEAKNESS OF RIGHT LOWER EXTREMITY Current Active Problems Fall (Acute) Right leg weakness (Acute) Unsteady gait (Acute) Hospital Course: 73 yom with PMHx of HTN, HLD, BPH, started on flomax 2 months ago, was in his usoh till day prior to admission, when noted his right leg giving out, and his left side of his nose and chest to the dresser. Was feeling fine then, was seen by PCP with reported normal exam and sent home. The day of admission, came in with persistent dizziness, more with positional changes, nausea, retching and gait instability. He was watched on telemetry with sinus bradycardia 50s-60s with no events even while positional dizziness was noted inhouse. He had MRI brain/MRA head/neck, carotid duplex, 2D echo, results as above, with no concerns. He was placed on gentle hydration and flomax and losartan/HCTZ were held. His symptoms resolved. He was seen by neurology and physical therapy and cleared for home discharge. He is advised to hold his flomax and his losartan/HCTZ combination has been changed to losartan on dc with close outpatient BP monitoring. Condition: Stable - Instructions Diet, Activity, Other Instructions: You were admitted with dizziness, unsteady gait, nausea and vomiting. You had MRI and MRA of your head and neck which were negative for active concerns. You also had carotid doppler study and 2Decho. You were seen by neurologist. You received hydration your symptoms have resolved. MEDICATIONS: Advise to stop your flomax for now. Also stop Losartan/HCTZ combination medication for now. Instead your are provided with a prescription of losartan 50 mg daily, continue for now. Also start ASA 81 mg daily. INSTRUCTIONS: Maintain adequate hydration. Home BP monitoring daily, notify your doctor if persistently >140/85 or any SBP (Upper BP reading) < 100 or any dizziness. If severe symptoms, please come to the ED. Avoid sudden changes in position or prolonged standing. FOLLOW UP: With Primary care doctor in 1 week With Neurologist in 1 month as needed if concerns. If recurrent vertigo symptoms, advise to follow up with Dr. Carlos Wilson from ENT Can discuss with your doctor for outpatient cardiology follow up and possible holter monitoring if recurrent dizziness or concerns. Outpatient sleep study, please discuss with your doctor. If you notice severe dizziness, vertigo, inability to stand or any severe symptoms or new concerns, please call 911 or come to the ED. Referrals: Frederic Lin MD [Staff Physician] - Bob Oliver MD [Primary Care Provider] - Steve Nguyen MD [Staff Physician] - Disposition: HOME - Home Medications Comprehensive Discharge Medication List: Ambulatory Orders Rosuvastatin Calcium [Crestor] 5 mg PO HS 11/19/14 Aspirin [ASA -] 81 mg PO DAILY #30 tab.chew 09/30/18 Losartan Potassium 50 mg PO DAILY #30 tablet 09/30/18 This patient is new to me today: No Emergency Visit: Yes ED Registration Date: 09/29/18 Care time: The patient presented to the Emergency Department on the above date and was hospitalized for further evaluation of their emergent condition. Critical Care patient: No - Discharge Referral Referred to [facility] Med [facility] No
[2018-09-30] MEDS ORDERED: ATORVASTATIN CA 40 MG TABLET (FP) PO SCH (22:00)
== END 2018-09-30 12:30 | disposition home or self-care (01) | DRG 149 ==
LOC: JER 09:11 → JERBED 15:23
PROVIDERS: ADMIT Hospitalist; ATTEND Hospitalist
DX: R42 Dizziness and giddiness (principal); R53.1 Weakness; R26.81 Unsteadiness on feet; R00.1 Bradycardia, unspecified; I10 Essential (primary) hypertension; E78.5 Hyperlipidemia, unspecified; N40.0 Benign prostatic hyperplasia without lower urinary tract symptoms; R11.2 Nausea with vomiting, unspecified
CPT/HCPCS: 36415; 70450-TC; 70544-TC; 70547-TC; 70551-TC; 71045-TC-FY; 80053; 80061; 81003; 82550; 82553; 83721; 83735; 84100; 84443; 84484; 85025; 87086; 93005; 93010; 93306-TC; 93880-TC; 97116-GP; 97161-GP; 99285-25; J7030

== ENCOUNTER 2020-05-04 10:23 | Inpatient (IN) | payer OTHER, BC ==
[2020-05-04] MEDS ORDERED: DEXAMETHASONE SOD PHOSPHATE 10 MG/1 ML VIAL IVPUSH ONE (10:54)
[2020-05-04] MEDS ORDERED: DEXAMETHASONE SOD PHOSPHATE 4 MG/1 ML VIAL ONE (11:05)
[2020-05-04 11:08] VITALS: BMI 24.4
[2020-05-04 12:06] LABS: VENOUS BASE EXCESS 0.5 mmol/L (-2-2); VENOUS O2 SATURATION 45.2 % (70-80); VENOUS PCO2 44.5 mmHg (38-52); VENOUS PH 7.383 (7.310-7.410)
[2020-05-04 12:10] LABS: BASO % 0.3 % (0-2.0); HEMATOCRIT 39.5 % (35.4-49); HEMOGLOBIN 13.5 GM/dL (11.7-16.9); LYMPH % 24.3 % (8-40); MCH 30.4 pg (25.7-33.7); MCHC 34.1 g/dl (32.0-35.9); MEAN CELL VOLUME 89.2 fl (80-96); MEAN PLT VOLUME 9.7 fl (7.5-11.1); MONO % 11.7 % (3.8-10.2); NEUT % 63.7 % (42.8-82.8); PLATELET COUNT 119 K/MM3 (134-434); RBC 4.43 M/mm3 (4.00-5.60); RDW 13.3 % (11.9-15.9); WHITE BLOOD COUNT 3.5 K/mm3 (4.0-10.0)
[2020-05-04 12:22] LABS: INR 1.14 (0.83-1.09); PROTHROMBIN TIME (PATIENT) 13.7 SEC (9.7-13.0)
[2020-05-04 12:24] LABS: ACTIVATED PTT 32.4 SECONDS (25.2-36.5)
[2020-05-04 12:27] LABS: CHLORIDE 102 mmol/L (98-107); POTASSIUM 4.3 mmol/L (3.5-5.1); SODIUM 135 mmol/L (136-145)
[2020-05-04 12:29] LABS: ALBUMIN 3.4 g/dl (3.4-5.0); ANION GAP 5 MMOL/L (8-16); BLOOD UREA NITROGEN 15.8 mg/dL (7-18); CALCIUM 8.1 mg/dL (8.5-10.1); CO2 27 mmol/L (21-32); GLUCOSE,RANDOM 92 mg/dL (74-106)
[2020-05-04 12:32] LABS: CREATININE 1.1 mg/dL (0.55-1.3); SGOT/AST 61 U/L (15-37); SGPT/ALT 41 U/L (13-61)
[2020-05-04 12:34] LABS: BILIRUBIN,TOTAL 0.4 mg/dL (0.2-1); TOT PROT 6.6 g/dl (6.4-8.2)
[2020-05-04 12:35] LABS: ALK PHOS 49 U/L (45-117)
[2020-05-04 12:36] LABS: LDH 476 U/L (87-246)
[2020-05-04] MEDS ORDERED: guaiFENesin 200 MG/10 ML 10 ML UNIT-DOSE CUPS PO ONE (13:14)
[2020-05-04] MEDS ORDERED: guaiFENesin/D-METHORPHAN HB 10 ML UNIT-DOSE CUPS ONE (14:16)
[2020-05-04] MEDS ORDERED: PT OWN MED DRAWER 7, Y5N ONE (14:16)
[2020-05-04 14:43] LABS: EPI CELLS 13 /uL (0-25.1); HYALINE CASTS 2 /uL (0-3.1); PH,URINE 5.5 (5.0-8.0); URINE APPEARANCE CLEAR; URINE BACTERIA 6 /uL (0-1359); URINE BILIRUBIN NEGATIVE (NEGATIVE); URINE COLOR YELLOW; URINE GLUCOSE (UA) NEGATIVE (NEGATIVE); URINE KETONE NEGATIVE (NEGATIVE); URINE LEUK ESTERASE NEGATIVE (NEGATIVE); URINE NITRITE NEGATIVE (NEGATIVE); URINE PROTEIN 1+ (NEGATIVE); URINE RBC 13 /uL (0-23.9); URINE UROBILINOGEN 0.2 mg/dL (0.2-1.0); URINE WBC 18 /uL (0-25.8)
[2020-05-04 15:58] LABS: MAGNESIUM 2.3 mg/dL (1.8-2.4)
[2020-05-04 16:02] LABS: PHOSPHOROUS 3.2 mg/dL (2.5-4.9)
[2020-05-04] MEDS ORDERED: ALBUTEROL SO4 HFA INHALER IH PRN (16:05)
[2020-05-04] MEDS ORDERED: ONDANSETRON 4 MG/2 ML VIAL IVPUSH PRN (16:07)
[2020-05-04] MEDS: ALBUTEROL SO4 2.5/IPRATROPIUM 0.5 INH SOL 3 ML VIAL.NEB. NEB SCH ×2 (18:21→18:22)
[2020-05-05] MEDS: ROSUVASTATIN CA 5 MG TABLET (FP) PO SCH ×2 (01:18→21:36)
[2020-05-05 06:20] LABS: BASO % 0.2 % (0-2.0); HEMATOCRIT 36.5 % (35.4-49); HEMOGLOBIN 12.8 GM/dL (11.7-16.9); LYMPH % 26.2 % (8-40); MCH 30.6 pg (25.7-33.7); MCHC 35.1 g/dl (32.0-35.9); MEAN CELL VOLUME 87.3 fl (80-96); MEAN PLT VOLUME 9.1 fl (7.5-11.1); MONO % 13.4 % (3.8-10.2); NEUT % 60.2 % (42.8-82.8); PLATELET COUNT 131 K/MM3 (134-434); RBC 4.18 M/mm3 (4.00-5.60); RDW 13.8 % (11.9-15.9); WHITE BLOOD COUNT 3.5 K/mm3 (4.0-10.0)
[2020-05-05 06:41] LABS: MAGNESIUM 2.3 mg/dL (1.8-2.4)
[2020-05-05 06:46] LABS: PHOSPHOROUS 4.4 mg/dL (2.5-4.9)
[2020-05-05] MEDS: DEXAMETHASONE 4 MG TABLET (FP) PO SCH (09:54)
[2020-05-05] MEDS: LOSARTAN POTASSIUM 50 MG TABLET PO SCH (09:56)
[2020-05-05] MEDS: ENOXAPARIN NA (PORCINE) 40 MG/0.4 ML DISP.SYRIN SQ SCH (09:56)
[2020-05-06] MEDS: BENZOCAINE/MENTH/CETYLPYRD CL 1 EACH LOZENGE MM PRN (06:41)
[2020-05-06 07:48] LABS: BASO % 0.1 % (0-2.0); HEMATOCRIT 38.7 % (35.4-49); HEMOGLOBIN 13.5 GM/dL (11.7-16.9); LYMPH % 18.7 % (8-40); MCH 30.5 pg (25.7-33.7); MEAN CELL VOLUME 87.4 fl (80-96); MONO % 6.5 % (3.8-10.2); NEUT % 74.7 % (42.8-82.8); PLATELET COUNT 137 K/MM3 (134-434); RBC 4.43 M/mm3 (4.00-5.60); RDW 13.7 % (11.9-15.9); WHITE BLOOD COUNT 5.7 K/mm3 (4.0-10.0)
[2020-05-06 08:13] LABS: POTASSIUM 3.9 mmol/L (3.5-5.1)
[2020-05-06 08:20] LABS: ALBUMIN 3.1 g/dl (3.4-5.0); BLOOD UREA NITROGEN 16.9 mg/dL (7-18)
[2020-05-06 08:21] LABS: CALCIUM 7.5 mg/dL (8.5-10.1); MAGNESIUM 1.7 mg/dL (1.8-2.4)
[2020-05-06 08:24] LABS: BILIRUBIN,TOTAL 0.7 mg/dL (0.2-1)
[2020-05-06 08:25] LABS: TOT PROT 6.4 g/dl (6.4-8.2)
[2020-05-06] MEDS ORDERED: CEFTRIAXONE 1 GM in DEXTROSE 5%-WATER - 50 ML IVPB ONE (09:08)
[2020-05-06] MEDS ORDERED: MAGNESIUM OXIDE 400 MG TABLET (FP) PO ONE (09:25)
[2020-05-06] MEDS ORDERED: AZITHROMYCIN IVPB 500 MG/250 ML BAG IVPB SCH (10:00)
[2020-05-06] MEDS: LOSARTAN POTASSIUM 50 MG TABLET PO SCH (10:10)
[2020-05-06] MEDS: DEXAMETHASONE 4 MG TABLET (FP) PO SCH (10:10)
[2020-05-06] MEDS: CHOLECALCIFEROL (VIT D3) 5000 UNITS (125 MCG) CAP PO SCH (10:10)
[2020-05-06] MEDS: ASCORBIC ACID 250 MG TABLET (FP) PO SCH (10:10)
[2020-05-06] MEDS: ENOXAPARIN NA (PORCINE) 40 MG/0.4 ML DISP.SYRIN SQ SCH (10:10)
[2020-05-06] MEDS: ZINC SULFATE 220 MG CAPSULE (FP) PO SCH (10:10)
[2020-05-06] MEDS ORDERED: REMDESIVIR 200 MG in SODIUM CHLORIDE 250 ML IVPB ONE (14:49)
[2020-05-06] MEDS ORDERED: REMDESIVIR 200 MG in SODIUM CHLORIDE 210 ML IVPB ONE (14:49)
[2020-05-06] MEDS: ROSUVASTATIN CA 5 MG TABLET (FP) PO SCH (21:48)
[2020-05-07 08:21] LABS: POTASSIUM 3.6 mmol/L (3.5-5.1)
[2020-05-07 08:23] LABS: ALBUMIN 2.9 g/dl (3.4-5.0); BLOOD UREA NITROGEN 16.6 mg/dL (7-18); CALCIUM 7.8 mg/dL (8.5-10.1); MAGNESIUM 2.1 mg/dL (1.8-2.4)
[2020-05-07 08:26] LABS: CREATININE 0.8 mg/dL (0.55-1.3)
[2020-05-07 08:28] LABS: BILIRUBIN,TOTAL 0.6 mg/dL (0.2-1); TOT PROT 6.1 g/dl (6.4-8.2)
[2020-05-07 09:06] LABS: BASO % 0.3 % (0-2.0); EOS % 0.1 % (0-4.5); HEMATOCRIT 37.7 % (35.4-49); HEMOGLOBIN 12.9 GM/dL (11.7-16.9); LYMPH % 15.8 % (8-40); MCH 30.7 pg (25.7-33.7); MCHC 34.2 g/dl (32.0-35.9); MEAN CELL VOLUME 89.7 fl (80-96); MEAN PLT VOLUME 9.4 fl (7.5-11.1); MONO % 8.8 % (3.8-10.2); PLATELET COUNT 135 K/MM3 (134-434); RDW 13.6 % (11.9-15.9); WHITE BLOOD COUNT 4.9 K/mm3 (4.0-10.0)
[2020-05-07] MEDS ORDERED: PANTOPRAZOLE 40 MG TABLET PO SCH (10:00)
[2020-05-07] MEDS ORDERED: DEXTROSE 5%-WATER - 50 ML IVPB ONE (10:40)
[2020-05-07] MEDS ORDERED: cefTRIAXone SODIUM 1 GM VIAL ONE (10:40)
[2020-05-07] MEDS: CEFTRIAXONE 1 GM in DEXTROSE 5%-WATER - 50 ML IVPB SCH (10:49)
[2020-05-07] MEDS: ENOXAPARIN NA (PORCINE) 40 MG/0.4 ML DISP.SYRIN SQ SCH (10:50)
[2020-05-07] MEDS: DEXAMETHASONE 4 MG TABLET (FP) PO SCH (10:50)
[2020-05-07] MEDS: ZINC SULFATE 220 MG CAPSULE (FP) PO SCH (10:50)
[2020-05-07] MEDS: LOSARTAN POTASSIUM 50 MG TABLET PO SCH (10:50)
[2020-05-07] MEDS: ASCORBIC ACID 250 MG TABLET (FP) PO SCH (10:50)
[2020-05-07] MEDS: ACETAMINOPHEN 325 MG TABLET (FP) PO PRN (10:50)
[2020-05-07] MEDS: FAMOTIDINE 20 MG TABLET PO SCH (13:41)
[2020-05-07] MEDS: CHOLECALCIFEROL (VIT D3) 5000 UNITS (125 MCG) CAP PO SCH (13:41)
[2020-05-07] MEDS ORDERED: REMDESIVIR 100 MG in SODIUM CHLORIDE 250 ML IVPB SCH (14:49)
[2020-05-07] MEDS: REMDESIVIR 100 MG in SODIUM CHLORIDE 230 ML IVPB SCH (15:00)
[2020-05-07] MEDS: ROSUVASTATIN CA 5 MG TABLET (FP) PO SCH (22:34)
[2020-05-08 08:19] LABS: BASO % 0.3 % (0-2.0); HEMATOCRIT 36.5 % (35.4-49); HEMOGLOBIN 12.7 GM/dL (11.7-16.9); LYMPH % 15.8 % (8-40); MCH 30.6 pg (25.7-33.7); MCHC 34.8 g/dl (32.0-35.9); MEAN CELL VOLUME 88.2 fl (80-96); MEAN PLT VOLUME 9.3 fl (7.5-11.1); MONO % 10.5 % (3.8-10.2); NEUT % 73.4 % (42.8-82.8); PLATELET COUNT 167 K/MM3 (134-434); RBC 4.15 M/mm3 (4.00-5.60); RDW 13.9 % (11.9-15.9); WHITE BLOOD COUNT 4.8 K/mm3 (4.0-10.0)
[2020-05-08 08:38] LABS: POTASSIUM 3.9 mmol/L (3.5-5.1)
[2020-05-08 08:43] LABS: ALBUMIN 2.7 g/dl (3.4-5.0); BLOOD UREA NITROGEN 18.2 mg/dL (7-18)
[2020-05-08 08:44] LABS: MAGNESIUM 2.2 mg/dL (1.8-2.4)
[2020-05-08 08:47] LABS: BILIRUBIN,TOTAL 0.7 mg/dL (0.2-1); CREATININE 0.7 mg/dL (0.55-1.3); TOT PROT 6.1 g/dl (6.4-8.2)
[2020-05-08] MEDS ORDERED: PT OWN MED DRAWER 7, Y5N ONE (09:53)
[2020-05-08] MEDS: DEXAMETHASONE 4 MG TABLET (FP) PO SCH (10:35)
[2020-05-08] MEDS: LOSARTAN POTASSIUM 50 MG TABLET PO SCH (10:35)
[2020-05-08] MEDS: ENOXAPARIN NA (PORCINE) 40 MG/0.4 ML DISP.SYRIN SQ SCH (10:36)
[2020-05-08] MEDS: ASCORBIC ACID 250 MG TABLET (FP) PO SCH (10:36)
[2020-05-08] MEDS: ZINC SULFATE 220 MG CAPSULE (FP) PO SCH (10:37)
[2020-05-08] MEDS ORDERED: DEXTROSE 5%-WATER - 50 ML IVPB ONE (10:48)
[2020-05-08] MEDS ORDERED: cefTRIAXone SODIUM 1 GM VIAL ONE (10:48)
[2020-05-08] MEDS: CEFTRIAXONE 1 GM in DEXTROSE 5%-WATER - 50 ML IVPB SCH (11:20)
[2020-05-08] MEDS: CHOLECALCIFEROL (VIT D3) 5000 UNITS (125 MCG) CAP PO SCH (11:21)
[2020-05-08] MEDS: REMDESIVIR 100 MG in SODIUM CHLORIDE 230 ML IVPB SCH (14:36)
[2020-05-08] MEDS: FAMOTIDINE 20 MG TABLET PO SCH (14:36)
[2020-05-08] MEDS: ROSUVASTATIN CA 5 MG TABLET (FP) PO SCH (21:17)
[2020-05-09] MEDS ORDERED: cefTRIAXone SODIUM 1 GM VIAL ONE (08:43)
[2020-05-09] MEDS ORDERED: DEXTROSE 5%-WATER - 50 ML IVPB ONE (08:43)
[2020-05-09] MEDS: ASCORBIC ACID 250 MG TABLET (FP) PO SCH (09:31)
[2020-05-09] MEDS: LOSARTAN POTASSIUM 50 MG TABLET PO SCH (09:31)
[2020-05-09] MEDS: DEXAMETHASONE 4 MG TABLET (FP) PO SCH (09:31)
[2020-05-09] MEDS: FAMOTIDINE 20 MG TABLET PO SCH (09:32)
[2020-05-09] MEDS: ENOXAPARIN NA (PORCINE) 40 MG/0.4 ML DISP.SYRIN SQ SCH (09:32)
[2020-05-09] MEDS: ZINC SULFATE 220 MG CAPSULE (FP) PO SCH (09:32)
[2020-05-09] MEDS: CEFTRIAXONE 1 GM in DEXTROSE 5%-WATER - 50 ML IVPB SCH (09:32)
[2020-05-09] MEDS: CHOLECALCIFEROL (VIT D3) 5000 UNITS (125 MCG) CAP PO SCH (09:33)
[2020-05-09] MEDS: REMDESIVIR 100 MG in SODIUM CHLORIDE 230 ML IVPB SCH (15:00)
[2020-05-09] MEDS ORDERED: MELATONIN 5 MG TABLETS PO ONE (20:20)
[2020-05-09] MEDS: ROSUVASTATIN CA 5 MG TABLET (FP) PO SCH (21:09)
[2020-05-10 08:38] LABS: POTASSIUM 3.7 mmol/L (3.5-5.1)
[2020-05-10 08:40] LABS: ALBUMIN 2.8 g/dl (3.4-5.0); BLOOD UREA NITROGEN 17.5 mg/dL (7-18); MAGNESIUM 2.1 mg/dL (1.8-2.4)
[2020-05-10 08:42] LABS: BASO % 0.1 % (0-2.0); EOS % 0.5 % (0-4.5); HEMATOCRIT 37.8 % (35.4-49); HEMOGLOBIN 13.2 GM/dL (11.7-16.9); LYMPH % 16.9 % (8-40); MCH 30.3 pg (25.7-33.7); MCHC 35.1 g/dl (32.0-35.9); MEAN CELL VOLUME 86.3 fl (80-96); MEAN PLT VOLUME 8.8 fl (7.5-11.1); MONO % 4.8 % (3.8-10.2); NEUT % 77.7 % (42.8-82.8); PLATELET COUNT 283 K/MM3 (134-434); RBC 4.38 M/mm3 (4.00-5.60); RDW 13.5 % (11.9-15.9); WHITE BLOOD COUNT 8.9 K/mm3 (4.0-10.0)
[2020-05-10 08:43] LABS: CREATININE 0.8 mg/dL (0.55-1.3)
[2020-05-10 08:45] LABS: BILIRUBIN,TOTAL 0.7 mg/dL (0.2-1); TOT PROT 5.9 g/dl (6.4-8.2)
[2020-05-10] MEDS ORDERED: cefTRIAXone SODIUM 1 GM VIAL ONE (09:37)
[2020-05-10] MEDS ORDERED: DEXTROSE 5%-WATER - 50 ML IVPB ONE (09:37)
[2020-05-10] MEDS: LOSARTAN POTASSIUM 50 MG TABLET PO SCH (10:35)
[2020-05-10] MEDS: DEXAMETHASONE 4 MG TABLET (FP) PO SCH (10:35)
[2020-05-10] MEDS: ZINC SULFATE 220 MG CAPSULE (FP) PO SCH (10:37)
[2020-05-10] MEDS: ENOXAPARIN NA (PORCINE) 40 MG/0.4 ML DISP.SYRIN SQ SCH (10:37)
[2020-05-10] MEDS: FAMOTIDINE 20 MG TABLET PO SCH (10:37)
[2020-05-10] MEDS: CEFTRIAXONE 1 GM in DEXTROSE 5%-WATER - 50 ML IVPB SCH (10:38)
[2020-05-10] MEDS: ASCORBIC ACID 250 MG TABLET (FP) PO SCH (10:38)
[2020-05-10] MEDS: CHOLECALCIFEROL (VIT D3) 5000 UNITS (125 MCG) CAP PO SCH (10:38)
[2020-05-10] MEDS: REMDESIVIR 100 MG in SODIUM CHLORIDE 230 ML IVPB SCH (14:57)
[2020-05-10] MEDS: MELATONIN 5 MG TABLETS PO PRN (21:02)
[2020-05-10] MEDS: ROSUVASTATIN CA 5 MG TABLET (FP) PO SCH (21:02)
[2020-05-10] MEDS: ACETAMINOPHEN 325 MG TABLET (FP) PO PRN (21:02)
[2020-05-11 08:49] LABS: BASO % 0.2 % (0-2.0); EOS % 0.8 % (0-4.5); HEMATOCRIT 37.3 % (35.4-49); HEMOGLOBIN 12.7 GM/dL (11.7-16.9); LYMPH % 12.9 % (8-40); MCH 30.1 pg (25.7-33.7); MCHC 34.1 g/dl (32.0-35.9); MEAN CELL VOLUME 88.2 fl (80-96); MEAN PLT VOLUME 9.1 fl (7.5-11.1); MONO % 4.6 % (3.8-10.2); NEUT % 81.5 % (42.8-82.8); PLATELET COUNT 283 K/MM3 (134-434); RBC 4.23 M/mm3 (4.00-5.60); RDW 13.5 % (11.9-15.9); WHITE BLOOD COUNT 9.9 K/mm3 (4.0-10.0)
[2020-05-11 09:06] LABS: ALBUMIN 2.7 g/dl (3.4-5.0); BLOOD UREA NITROGEN 13.9 mg/dL (7-18); CALCIUM 7.7 mg/dL (8.5-10.1); MAGNESIUM 2.2 mg/dL (1.8-2.4); POTASSIUM 3.4 mmol/L (3.5-5.1)
[2020-05-11 09:10] LABS: BILIRUBIN,TOTAL 0.7 mg/dL (0.2-1); CREATININE 0.7 mg/dL (0.55-1.3)
[2020-05-11] MEDS ORDERED: PT OWN MED DRAWER 7, Y5N ONE (10:06)
[2020-05-11] MEDS ORDERED: cefTRIAXone SODIUM 1 GM VIAL ONE (10:06)
[2020-05-11] MEDS ORDERED: DEXTROSE 5%-WATER - 50 ML IVPB ONE (10:07)
[2020-05-11] MEDS: DEXAMETHASONE 4 MG TABLET (FP) PO SCH ×2 (10:27→12:23)
[2020-05-11] MEDS: LOSARTAN POTASSIUM 50 MG TABLET PO SCH (10:27)
[2020-05-11] MEDS: CHOLECALCIFEROL (VIT D3) 5000 UNITS (125 MCG) CAP PO SCH (10:27)
[2020-05-11] MEDS: ASCORBIC ACID 250 MG TABLET (FP) PO SCH (10:27)
[2020-05-11] MEDS: CEFTRIAXONE 1 GM in DEXTROSE 5%-WATER - 50 ML IVPB SCH (10:28)
[2020-05-11] MEDS: ZINC SULFATE 220 MG CAPSULE (FP) PO SCH (10:28)
[2020-05-11] MEDS: ENOXAPARIN NA (PORCINE) 40 MG/0.4 ML DISP.SYRIN SQ SCH (10:28)
[2020-05-11] MEDS: FAMOTIDINE 20 MG TABLET PO SCH (10:28)
[2020-05-11] MEDS: DEXAMETHASONE SOD PHOSPHATE 4 MG/1 ML VIAL IVPUSH SCH (12:23)
[2020-05-11] MEDS: ROSUVASTATIN CA 5 MG TABLET (FP) PO SCH (21:57)
[2020-05-12] MEDS: MELATONIN 5 MG TABLETS PO PRN ×2 (00:24→21:20)
[2020-05-12 07:23] LABS: BASO % 0.1 % (0-2.0); EOS % 0.9 % (0-4.5); HEMATOCRIT 34.7 % (35.4-49); HEMOGLOBIN 12.5 GM/dL (11.7-16.9); LYMPH % 9.3 % (8-40); MCH 31.4 pg (25.7-33.7); MEAN CELL VOLUME 87.2 fl (80-96); MEAN PLT VOLUME 8.6 fl (7.5-11.1); MONO % 4.8 % (3.8-10.2); NEUT % 84.9 % (42.8-82.8); PLATELET COUNT 253 K/MM3 (134-434); RBC 3.97 M/mm3 (4.00-5.60); RDW 13.4 % (11.9-15.9); WHITE BLOOD COUNT 7.5 K/mm3 (4.0-10.0)
[2020-05-12 07:49] LABS: CREATININE 0.6 mg/dL (0.55-1.3)
[2020-05-12 07:51] LABS: ALBUMIN 2.4 g/dl (3.4-5.0); BILIRUBIN,TOTAL 0.5 mg/dL (0.2-1); BLOOD UREA NITROGEN 12.2 mg/dL (7-18); CALCIUM 7.9 mg/dL (8.5-10.1); MAGNESIUM 2.2 mg/dL (1.8-2.4); TOT PROT 5.6 g/dl (6.4-8.2)
[2020-05-12] MEDS ORDERED: DEXTROSE 5%-WATER - 50 ML IVPB ONE (10:09)
[2020-05-12] MEDS ORDERED: cefTRIAXone SODIUM 1 GM VIAL ONE (10:09)
[2020-05-12] MEDS: ZINC SULFATE 220 MG CAPSULE (FP) PO SCH (11:24)
[2020-05-12] MEDS: ENOXAPARIN NA (PORCINE) 40 MG/0.4 ML DISP.SYRIN SQ SCH (11:24)
[2020-05-12] MEDS: ASCORBIC ACID 250 MG TABLET (FP) PO SCH (11:25)
[2020-05-12] MEDS: FAMOTIDINE 20 MG TABLET PO SCH (11:25)
[2020-05-12] MEDS: LOSARTAN POTASSIUM 50 MG TABLET PO SCH (11:25)
[2020-05-12] MEDS: CEFTRIAXONE 1 GM in DEXTROSE 5%-WATER - 50 ML IVPB SCH (11:25)
[2020-05-12] MEDS: DEXAMETHASONE SOD PHOSPHATE 4 MG/1 ML VIAL IVPUSH SCH (11:25)
[2020-05-12] MEDS: CHOLECALCIFEROL (VIT D3) 5000 UNITS (125 MCG) CAP PO SCH (11:26)
[2020-05-12] MEDS: ROSUVASTATIN CA 5 MG TABLET (FP) PO SCH (21:20)
[2020-05-13 08:27] LABS: BASO % 0.2 % (0-2.0); EOS % 0.7 % (0-4.5); HEMATOCRIT 35.8 % (35.4-49); HEMOGLOBIN 12.8 GM/dL (11.7-16.9); LYMPH % 9.4 % (8-40); MCH 30.9 pg (25.7-33.7); MCHC 35.7 g/dl (32.0-35.9); MEAN CELL VOLUME 86.4 fl (80-96); MEAN PLT VOLUME 8.8 fl (7.5-11.1); MONO % 5.5 % (3.8-10.2); NEUT % 84.2 % (42.8-82.8); PLATELET COUNT 363 K/MM3 (134-434); RBC 4.14 M/mm3 (4.00-5.60); RDW 13.7 % (11.9-15.9); WHITE BLOOD COUNT 10.5 K/mm3 (4.0-10.0)
[2020-05-13 08:52] LABS: POTASSIUM 3.9 mmol/L (3.5-5.1)
[2020-05-13 09:00] LABS: ALBUMIN 2.7 g/dl (3.4-5.0); BLOOD UREA NITROGEN 13.9 mg/dL (7-18)
[2020-05-13 09:02] LABS: BILIRUBIN,TOTAL 0.7 mg/dL (0.2-1); MAGNESIUM 2.2 mg/dL (1.8-2.4); TOT PROT 6.1 g/dl (6.4-8.2)
[2020-05-13 09:03] LABS: CREATININE 0.7 mg/dL (0.55-1.3)
[2020-05-13] MEDS ORDERED: PT OWN MED DRAWER 7, Y5N ONE (09:51)
[2020-05-13] MEDS: CHOLECALCIFEROL (VIT D3) 5000 UNITS (125 MCG) CAP PO SCH (10:14)
[2020-05-13] MEDS: ASCORBIC ACID 250 MG TABLET (FP) PO SCH (10:14)
[2020-05-13] MEDS: ZINC SULFATE 220 MG CAPSULE (FP) PO SCH (10:15)
[2020-05-13] MEDS: ENOXAPARIN NA (PORCINE) 40 MG/0.4 ML DISP.SYRIN SQ SCH (10:15)
[2020-05-13] MEDS: FAMOTIDINE 20 MG TABLET PO SCH (10:15)
[2020-05-13] MEDS: LOSARTAN POTASSIUM 50 MG TABLET PO SCH (10:15)
[2020-05-13] MEDS: DEXAMETHASONE SOD PHOSPHATE 4 MG/1 ML VIAL IVPUSH SCH (10:15)
[2020-05-13] MEDS: ROSUVASTATIN CA 5 MG TABLET (FP) PO SCH (22:13)
[2020-05-13] MEDS: APIXABAN 5 MG TABLET PO SCH (22:13)
[2020-05-13] MEDS: MELATONIN 5 MG TABLETS PO PRN (22:13)
[2020-05-14 07:34] LABS: BASO % 0.2 % (0-2.0); EOS % 0.2 % (0-4.5); HEMATOCRIT 35.1 % (35.4-49); HEMOGLOBIN 12.3 GM/dL (11.7-16.9); LYMPH % 10.7 % (8-40); MCH 30.5 pg (25.7-33.7); MCHC 35.1 g/dl (32.0-35.9); MEAN CELL VOLUME 86.9 fl (80-96); MEAN PLT VOLUME 8.4 fl (7.5-11.1); MONO % 6.6 % (3.8-10.2); NEUT % 82.3 % (42.8-82.8); PLATELET COUNT 329 K/MM3 (134-434); RBC 4.04 M/mm3 (4.00-5.60); RDW 13.3 % (11.9-15.9); WHITE BLOOD COUNT 9.5 K/mm3 (4.0-10.0)
[2020-05-14 07:56] LABS: POTASSIUM 4.1 mmol/L (3.5-5.1)
[2020-05-14 08:25] LABS: ALBUMIN 2.4 g/dl (3.4-5.0)
[2020-05-14 08:26] LABS: MAGNESIUM 2.2 mg/dL (1.8-2.4)
[2020-05-14 08:28] LABS: CREATININE 0.7 mg/dL (0.55-1.3)
[2020-05-14 08:30] LABS: BILIRUBIN,TOTAL 0.9 mg/dL (0.2-1); TOT PROT 5.5 g/dl (6.4-8.2)
[2020-05-14] MEDS ORDERED: PT OWN MED DRAWER 7, Y5N ONE ×2 (10:20→14:55)
[2020-05-14] MEDS: APIXABAN 5 MG TABLET PO SCH ×2 (10:24→22:13)
[2020-05-14] MEDS: FAMOTIDINE 20 MG TABLET PO SCH (10:24)
[2020-05-14] MEDS: CHOLECALCIFEROL (VIT D3) 5000 UNITS (125 MCG) CAP PO SCH (10:24)
[2020-05-14] MEDS: LOSARTAN POTASSIUM 50 MG TABLET PO SCH (10:24)
[2020-05-14] MEDS: DEXAMETHASONE SOD PHOSPHATE 4 MG/1 ML VIAL IVPUSH SCH (10:24)
[2020-05-14] MEDS: ASCORBIC ACID 250 MG TABLET (FP) PO SCH (10:24)
[2020-05-14] MEDS: ZINC SULFATE 220 MG CAPSULE (FP) PO SCH (10:24)
[2020-05-14] MEDS: SODIUM CHLORIDE NASAL SPRAY 44 ML BOTTLE NS SCH ×2 (14:55→22:17)
[2020-05-14] MEDS: ROSUVASTATIN CA 5 MG TABLET (FP) PO SCH (22:13)
[2020-05-14] MEDS: MELATONIN 5 MG TABLETS PO PRN (22:13)
[2020-05-15 08:05] LABS: BASO % 0.1 % (0-2.0); EOS % 0.1 % (0-4.5); HEMATOCRIT 33.3 % (35.4-49); HEMOGLOBIN 11.8 GM/dL (11.7-16.9); LYMPH % 8.6 % (8-40); MCHC 35.5 g/dl (32.0-35.9); MEAN CELL VOLUME 87.1 fl (80-96); MEAN PLT VOLUME 8.4 fl (7.5-11.1); MONO % 7.1 % (3.8-10.2); NEUT % 84.1 % (42.8-82.8); PLATELET COUNT 310 K/MM3 (134-434); RBC 3.82 M/mm3 (4.00-5.60); RDW 13.6 % (11.9-15.9)
[2020-05-15 08:08] LABS: POTASSIUM 4.8 mmol/L (3.5-5.1)
[2020-05-15 08:10] LABS: CALCIUM 8.2 mg/dL (8.5-10.1)
[2020-05-15 08:11] LABS: ALBUMIN 2.4 g/dl (3.4-5.0); MAGNESIUM 2.4 mg/dL (1.8-2.4)
[2020-05-15 08:13] LABS: CREATININE 0.7 mg/dL (0.55-1.3)
[2020-05-15 08:15] LABS: BILIRUBIN,TOTAL 0.4 mg/dL (0.2-1); TOT PROT 5.5 g/dl (6.4-8.2)
[2020-05-15] MEDS ORDERED: PT OWN MED DRAWER 7, Y5N ONE (09:29)
[2020-05-15] MEDS: CHOLECALCIFEROL (VIT D3) 5000 UNITS (125 MCG) CAP PO SCH (09:48)
[2020-05-15] MEDS: ZINC SULFATE 220 MG CAPSULE (FP) PO SCH (09:48)
[2020-05-15] MEDS: ASCORBIC ACID 250 MG TABLET (FP) PO SCH (09:48)
[2020-05-15] MEDS: LOSARTAN POTASSIUM 50 MG TABLET PO SCH (09:48)
[2020-05-15] MEDS: FAMOTIDINE 20 MG TABLET PO SCH (09:49)
[2020-05-15] MEDS: DEXAMETHASONE SOD PHOSPHATE 4 MG/1 ML VIAL IVPUSH SCH (09:49)
[2020-05-15] MEDS: APIXABAN 5 MG TABLET PO SCH ×2 (09:49→21:48)
[2020-05-15] MEDS: SODIUM CHLORIDE NASAL SPRAY 44 ML BOTTLE NS SCH ×2 (13:12→21:48)
[2020-05-15] MEDS: ROSUVASTATIN CA 5 MG TABLET (FP) PO SCH (21:48)
[2020-05-15] MEDS: MELATONIN 5 MG TABLETS PO PRN (21:48)
[2020-05-16 08:41] LABS: BASO % 0.1 % (0-2.0); EOS % 0.2 % (0-4.5); HEMATOCRIT 36.4 % (35.4-49); HEMOGLOBIN 12.7 GM/dL (11.7-16.9); LYMPH % 14.8 % (8-40); MCH 30.6 pg (25.7-33.7); MEAN CELL VOLUME 87.3 fl (80-96); MEAN PLT VOLUME 8.5 fl (7.5-11.1); MONO % 4.6 % (3.8-10.2); NEUT % 80.3 % (42.8-82.8); PLATELET COUNT 318 K/MM3 (134-434); RBC 4.17 M/mm3 (4.00-5.60); RDW 14.1 % (11.9-15.9); WHITE BLOOD COUNT 10.3 K/mm3 (4.0-10.0)
[2020-05-16 09:00] LABS: POTASSIUM 4.2 mmol/L (3.5-5.1)
[2020-05-16] MEDS ORDERED: PT OWN MED DRAWER 7, Y5N ONE (09:03)
[2020-05-16 09:13] LABS: ALBUMIN 2.6 g/dl (3.4-5.0); BLOOD UREA NITROGEN 17.7 mg/dL (7-18); CALCIUM 8.5 mg/dL (8.5-10.1); MAGNESIUM 2.3 mg/dL (1.8-2.4)
[2020-05-16 09:17] LABS: BILIRUBIN,TOTAL 1.1 mg/dL (0.2-1); CREATININE 0.7 mg/dL (0.55-1.3)
[2020-05-16 09:18] LABS: TOT PROT 5.7 g/dl (6.4-8.2)
[2020-05-16] MEDS: ASCORBIC ACID 250 MG TABLET (FP) PO SCH (09:41)
[2020-05-16] MEDS: APIXABAN 5 MG TABLET PO SCH ×2 (09:41→21:37)
[2020-05-16] MEDS: ZINC SULFATE 220 MG CAPSULE (FP) PO SCH (09:41)
[2020-05-16] MEDS: SODIUM CHLORIDE NASAL SPRAY 44 ML BOTTLE NS SCH ×2 (09:42→21:37)
[2020-05-16] MEDS: FAMOTIDINE 20 MG TABLET PO SCH (09:42)
[2020-05-16] MEDS: LOSARTAN POTASSIUM 50 MG TABLET PO SCH (09:42)
[2020-05-16] MEDS: DEXAMETHASONE SOD PHOSPHATE 4 MG/1 ML VIAL IVPUSH SCH (09:42)
[2020-05-16] MEDS: CHOLECALCIFEROL (VIT D3) 5000 UNITS (125 MCG) CAP PO SCH (09:47)
[2020-05-16] MEDS: MELATONIN 5 MG TABLETS PO PRN (21:37)
[2020-05-16] MEDS: ROSUVASTATIN CA 5 MG TABLET (FP) PO SCH (21:37)
[2020-05-17 07:25] LABS: BASO % 0.2 % (0-2.0); EOS % 0.2 % (0-4.5); HEMATOCRIT 34.2 % (35.4-49); LYMPH % 14.5 % (8-40); MCH 30.7 pg (25.7-33.7); MEAN CELL VOLUME 87.7 fl (80-96); MEAN PLT VOLUME 8.4 fl (7.5-11.1); MONO % 7.4 % (3.8-10.2); NEUT % 77.7 % (42.8-82.8); PLATELET COUNT 262 K/MM3 (134-434); RDW 13.3 % (11.9-15.9); WHITE BLOOD COUNT 10.7 K/mm3 (4.0-10.0)
[2020-05-17 07:41] LABS: POTASSIUM 4.7 mmol/L (3.5-5.1)
[2020-05-17 07:44] LABS: ALBUMIN 2.4 g/dl (3.4-5.0); BLOOD UREA NITROGEN 18.3 mg/dL (7-18); MAGNESIUM 2.3 mg/dL (1.8-2.4)
[2020-05-17 07:47] LABS: CREATININE 0.7 mg/dL (0.55-1.3)
[2020-05-17 07:49] LABS: TOT PROT 5.4 g/dl (6.4-8.2)
[2020-05-17] MEDS: ZINC SULFATE 220 MG CAPSULE (FP) PO SCH (09:43)
[2020-05-17] MEDS: SODIUM CHLORIDE NASAL SPRAY 44 ML BOTTLE NS SCH ×2 (09:43→21:35)
[2020-05-17] MEDS: DEXAMETHASONE SOD PHOSPHATE 4 MG/1 ML VIAL IVPUSH SCH (09:43)
[2020-05-17] MEDS: ASCORBIC ACID 250 MG TABLET (FP) PO SCH (09:43)
[2020-05-17] MEDS: FAMOTIDINE 20 MG TABLET PO SCH (09:43)
[2020-05-17] MEDS: APIXABAN 5 MG TABLET PO SCH ×2 (09:43→21:35)
[2020-05-17] MEDS: LOSARTAN POTASSIUM 50 MG TABLET PO SCH (09:43)
[2020-05-17] MEDS: CHOLECALCIFEROL (VIT D3) 5000 UNITS (125 MCG) CAP PO SCH (09:44)
[2020-05-17] MEDS: MELATONIN 5 MG TABLETS PO PRN (21:35)
[2020-05-17] MEDS: ROSUVASTATIN CA 5 MG TABLET (FP) PO SCH (21:35)
[2020-05-18 05:33] VITALS: TEMP 98.1
[2020-05-18 09:37] LABS: BASO % 0.1 % (0-2.0); EOS % 0.2 % (0-4.5); HEMATOCRIT 34.1 % (35.4-49); HEMOGLOBIN 11.7 GM/dL (11.7-16.9); LYMPH % 18.4 % (8-40); MCH 30.4 pg (25.7-33.7); MCHC 34.3 g/dl (32.0-35.9); MEAN CELL VOLUME 88.7 fl (80-96); MEAN PLT VOLUME 8.7 fl (7.5-11.1); MONO % 8.6 % (3.8-10.2); NEUT % 72.7 % (42.8-82.8); PLATELET COUNT 238 K/MM3 (134-434); RBC 3.85 M/mm3 (4.00-5.60); RDW 13.9 % (11.9-15.9); WHITE BLOOD COUNT 9.6 K/mm3 (4.0-10.0)
[2020-05-18 10:01] LABS: CHLORIDE 103 mmol/L (98-107); POTASSIUM 4.5 mmol/L (3.5-5.1); SODIUM 139 mmol/L (136-145)
[2020-05-18] MEDS: LOSARTAN POTASSIUM 50 MG TABLET PO SCH (10:05)
[2020-05-18] MEDS: APIXABAN 5 MG TABLET PO SCH (10:08)
[2020-05-18] MEDS: ASCORBIC ACID 250 MG TABLET (FP) PO SCH (10:08)
[2020-05-18] MEDS: BENZOCAINE/MENTH/CETYLPYRD CL 1 EACH LOZENGE MM PRN (10:08)
[2020-05-18] MEDS: ZINC SULFATE 220 MG CAPSULE (FP) PO SCH (10:08)
[2020-05-18] MEDS: FAMOTIDINE 20 MG TABLET PO SCH (10:08)
[2020-05-18] MEDS: SODIUM CHLORIDE NASAL SPRAY 44 ML BOTTLE NS SCH (10:08)
[2020-05-18] MEDS: CHOLECALCIFEROL (VIT D3) 5000 UNITS (125 MCG) CAP PO SCH (10:08)
[2020-05-18] MEDS: DEXAMETHASONE SOD PHOSPHATE 4 MG/1 ML VIAL IVPUSH SCH (10:08)
[2020-05-18 10:28] LABS: ANION GAP 7 MMOL/L (8-16); CALCIUM 8.2 mg/dL (8.5-10.1); CO2 30 mmol/L (21-32)
[2020-05-18 10:29] LABS: ALBUMIN 2.5 g/dl (3.4-5.0); GLUCOSE,RANDOM 70 mg/dL (74-106); MAGNESIUM 2.3 mg/dL (1.8-2.4)
[2020-05-18 10:31] LABS: CREATININE 0.7 mg/dL (0.55-1.3); SGPT/ALT 39 U/L (13-61)
[2020-05-18 10:32] LABS: LDH 212 U/L (87-246)
[2020-05-18 10:33] LABS: BILIRUBIN,TOTAL 0.5 mg/dL (0.2-1); TOT PROT 5.3 g/dl (6.4-8.2)
[2020-05-18 10:34] LABS: ALK PHOS 38 U/L (45-117)
[2020-05-18 10:41] LABS: BLOOD UREA NITROGEN 20.7 mg/dL (7-18)
[2020-05-18 10:57] LABS: SGOT/AST 15 U/L (15-37)
[2020-05-18 12:21] VITALS: BP 124/74; PULSE 118
== END 2020-05-18 15:28 | disposition home or self-care (01) | DRG 177 ==
LOC: JER 10:23 → JERBED 13:04 → J4W 05-05 01:12
PROVIDERS: ADMIT Internal Medicine; ATTEND Nurse Practitioner Family
PROC: XW13325 Transfusion of Convalescent Plasma (Nonautologous) into Peripheral Vein, Percutaneous Approach, New Technology Group 5 (ICD-10-PCS; principal; 2020-05-06)
PROC: XW033E5 Introduction of Remdesivir Anti-infective into Peripheral Vein, Percutaneous Approach, New Technology Group 5 (ICD-10-PCS; 2020-05-06)
DX: U07.1 COVID-19 (principal); J96.01 Acute respiratory failure with hypoxia; J12.82 Pneumonia due to coronavirus disease 2019; I10 Essential (primary) hypertension; E78.5 Hyperlipidemia, unspecified; R00.0 Tachycardia, unspecified
CPT/HCPCS: 36415; 36430; 71045-TC-FY; 80053; 81003; 82728; 82803; 83605; 83615; 83735; 84100; 84484; 85025; 85027; 85379; 85610; 85651; 85730; 86140; 86850; 86900; 86901; 87426; 87804; 93005; 93010; 94761; 97116-GP; 97161-GP; 99285-25; C9399; C9803; J1100; P9017; U0003